=== PATIENT | male | born 1955 | race Two or more races ===

== ENCOUNTER 2023-10-08 17:42 | Emergency (ER) | payer OTHER, MEDICAID ==
[~2023-10-08] VITALS: Ht 175.3 cm; Wt 90.0 kg
[2023-10-08 18:37] LABS: Basophils # (auto) 0.1 10 ^3/uL (0-0.2); Basophils % (auto) 0.7 % (0.0-2.0); Eosinophils # (auto) 0.2 10 ^3/uL (0-0.8); Hematocrit 35.2 % (41.0-53.0); Hemoglobin 11.3 g/dL (13.5-17.5); Lymphocytes # (auto) 0.7 10 ^3/uL (0.4-5.4); Lymphocytes % (auto) 8.6 % (10.0-50.0); Mean Corpuscular Hemoglobin 32.5 pg (28.0-32.0); Mean Corpuscular Hgb Conc. 32.2 g/dL (32.0-36.0); Mean Corpuscular Volume 100.9 fL (80.0-100.0); Monocytes # (auto) 0.6 10 ^3/uL (0-1.3); Monocytes % (auto) 6.9 % (0.0-12.0); Neutrophils # (auto) 6.6 10 ^3/uL (1.6-8.6); Neutrophils % (auto) 81.8 % (37.0-80.0); Nucleated Red Blood Cells % 0.1 %; Red Blood Cells 3.49 10^6/uL (4.5-5.90); Red Cell Distribution Width 17.9 % (11.8-14.3)
[2023-10-08 18:51] LABS: INR 1.38 (0.9-1.15); Prothrombin Time 14.2 sec (9.3-11.8)
[2023-10-08 18:58] LABS: Alanine Aminotransferase 51 U/L (7-40); Albumin 2.3 g/dL (3.2-4.8); Alkaline Phosphatase 208 U/L (46-116); Anion Gap 10 (5-15); Aspartate Aminotransferase 100 U/L (13-40); BUN/Creatinine Ratio 24.1 (10.0-20.0); Bilirubin, Total 9.4 mg/dL (0.2-1.0); Blood Alcohol 7.2 mg/dL (<10); Blood Urea Nitrogen 38 mg/dL (9-23); Calcium 9.3 mg/dL (8.5-10.1); Carbon Dioxide 18 mmol/L (20-30); Chloride 111 mmol/L (98-107); Glucose 121 mg/dL (74-106); Potassium 3.7 mmol/L (3.5-5.1); Sodium 139 mmol/L (136-145); Total Protein 7.4 g/dL (5.7-8.2)
[2023-10-08 19:05] LABS: Lactic Acid w/Reflex 3.3 mmol/L (0.4-2.0)
[2023-10-08] MEDS ORDERED: LACTULOSE 20Gm/30ML SOLN PO ONE (20:00)
[2023-10-08 20:30] VITALS: PULSE 98; RESP 24; O2SAT 96
[2023-10-08 22:25] LABS: COVID19 ANTIGEN SOFIA FIA NEGATIVE (NEGATIVE)
[2023-10-08] MEDS ORDERED: traMADol HCL 50 MG TAB PO ONE (23:15)
[2023-10-09 01:00] VITALS: BP 120/60; PULSE 95; RESP 17; TEMP 97.8; O2SAT 95
== END 2023-10-09 01:20 | disposition short-term general hospital (02) ==
LOC: ER 17:42 → EDBD 17:42 → ER 10-09 01:20
DX: R41.82 Altered mental status, unspecified (principal); G93.41 Metabolic encephalopathy; R94.31 Abnormal electrocardiogram [ECG] [EKG]; Z20.822 Contact with and (suspected) exposure to COVID-19; Z79.899 Other long term (current) drug therapy; Z79.01 Long term (current) use of anticoagulants
CPT/HCPCS: 36415; 70450; 80053; 80320; 82140; 83605; 85025; 85610; 85730; 87426; 93005